=== PATIENT | female | born 1990 | race African-American/Black ===

== ENCOUNTER 2017-03-03 20:42 | Emergency (ER) | payer SELFPAY ==
[2017-03-03] MEDS ORDERED: Acetaminophen 500 MG TAB ONE ×2 (21:29→21:31)
[2017-03-03] MEDS ORDERED: Ondansetron ODT 4 MG TAB ONE (22:57)
[2017-03-03] MEDS ORDERED: Dexamethasone 4 mg/ml Vial ONE (22:57)
== END 2017-03-03 23:24 | disposition home or self-care (01) ==
LOC: ERS 20:42
DX: J02.9 Acute pharyngitis, unspecified (principal); R11.0 Nausea; F17.210 Nicotine dependence, cigarettes, uncomplicated
CPT/HCPCS: 87081; 87430; 99283; J1100; Q0162

== ENCOUNTER 2017-03-09 13:34 | Emergency (ER) | payer SELFPAY ==
[2017-03-09] MEDS ORDERED: Dexamethasone 10 MG/ML VIAL ONE (14:51)
== END 2017-03-09 16:00 | disposition home or self-care (01) ==
LOC: SCSER 13:34
DX: J02.9 Acute pharyngitis, unspecified (principal)
CPT/HCPCS: 81025; 86308; 87081; 87430; 96360; J1100

== ENCOUNTER 2019-01-31 18:14 | Emergency (ER) | payer SELFPAY | END 2019-01-31 19:30 | disposition home or self-care (01) | LOC: ERS 18:14 | DX: R05 Cough (principal); F17.210 Nicotine dependence, cigarettes, uncomplicated | CPT/HCPCS: 99283 ==

== ENCOUNTER 2019-03-07 11:42 | Emergency (ER) | payer SELFPAY | END 2019-03-07 13:00 | disposition home or self-care (01) | LOC: ERS 11:42 | DX: L25.3 Unspecified contact dermatitis due to other chemical products (principal); F17.210 Nicotine dependence, cigarettes, uncomplicated | CPT/HCPCS: 99283 ==

== ENCOUNTER 2020-04-01 17:18 | Emergency (ER) | payer SELFPAY | END 2020-04-01 19:07 | disposition home or self-care (01) | LOC: ERS 17:18 | DX: J02.9 Acute pharyngitis, unspecified (principal); F17.210 Nicotine dependence, cigarettes, uncomplicated | CPT/HCPCS: 87081; 87430; 99283 ==

== ENCOUNTER 2020-04-19 16:42 | Emergency (ER) | payer SELFPAY ==
[2020-04-19] MEDS ORDERED: Acetaminophen 500 MG TAB ONE (17:00)
[2020-04-19] MEDS ORDERED: Bicillin LA 1.2 MILLION UNITS/2 ML SYRINGE ONE (17:00)
[2020-04-19] MEDS ORDERED: Dexamethasone 4 MG TAB ONE (17:00)
[2020-04-19] MEDS ORDERED: Dexamethasone 10 MG/ML VIAL ONE (17:00)
[2020-04-19] MEDS ORDERED: Ketorolac Tromethamine 30 MG/ML VIAL ONE (17:00)
== END 2020-04-19 17:29 | disposition home or self-care (01) ==
LOC: ERS 16:42
DX: J02.0 Streptococcal pharyngitis (principal); F17.210 Nicotine dependence, cigarettes, uncomplicated
CPT/HCPCS: 96372; 99282; J0561; J1100; J1885; J8540

== ENCOUNTER 2020-06-10 07:11 | Emergency (ER) | payer SELFPAY ==
[2020-06-10] MEDS ORDERED: cefTRIAXone\\ROCEPHIN 500 MG VIAL ONE (07:32)
[2020-06-10 07:53] LABS: Bilirubin Negative (Negative); Blood, Urine Negative (Negative); Clarity Clear (Clear); Glucose, Urine (Dipstick) Normal (Negative); Ketone, Urine Negative (Negative); Leukocyte Negative Leu/uL (Negative); Nitrite Negative (Negative); Protein, Urine (Dipstick) Negative (Neg-Trace); Specific Gravity, Urine 1.006 (1.002-1.036); Urobilinogen Normal mg/dL (Less than 2)
[2020-06-10 08:11] LABS: Pregnancy Test - Urine (BHCG) Negative (Negative); Pregu Control Background? CLEAR/WHITE (CLR/WHITE); Pregu Control Bar Appear? YES (CONTROL BAR); Specific Gravity 1.006 (1.002-1.036)
[2020-06-10 22:08] LABS: Chlamydia by PCR Not Detected (NotDetected); GC by PCR Not Detected (NotDetected)
== END 2020-06-10 08:55 | disposition home or self-care (01) ==
LOC: ERS 07:11
DX: N76.0 Acute vaginitis (principal); Z20.2 Contact with and (suspected) exposure to infections with a predominantly sexual mode of transmission; F17.210 Nicotine dependence, cigarettes, uncomplicated
CPT/HCPCS: 81003; 81025; 87480; 87491; 87510; 87591; 87660; 96372; 99283; J0696

== ENCOUNTER 2020-11-03 00:55 | Emergency (ER) | payer SELFPAY ==
[2020-11-03] MEDS ORDERED: HYDROcodone/Acetaminophen 10/325 mg Tablet ONE (05:58)
== END 2020-11-03 02:25 | disposition home or self-care (01) ==
LOC: ERS 00:55
DX: S83.92XA Sprain of unspecified site of left knee, initial encounter (principal); F17.210 Nicotine dependence, cigarettes, uncomplicated; X50.1XXA Overexertion from prolonged static or awkward postures, initial encounter

== ENCOUNTER 2021-02-21 17:17 | Emergency (ER) | payer SELFPAY | END 2021-02-21 17:41 | disposition home or self-care (01) | LOC: ERS 17:17 | DX: J02.9 Acute pharyngitis, unspecified (principal); F17.210 Nicotine dependence, cigarettes, uncomplicated | CPT/HCPCS: 99282 ==

== ENCOUNTER 2021-06-25 00:16 | Emergency (ER) | payer OTHER, SELFPAY ==
[2021-06-25] MEDS ORDERED: Bicillin LA 1.2 MILLION UNITS/2 ML SYRINGE ONE (02:18)
[2021-06-25] MEDS ORDERED: Dexamethasone 10 MG/ML VIAL ONE (02:18)
== END 2021-06-25 02:47 | disposition home or self-care (01) ==
LOC: ERS 00:16
DX: J02.9 Acute pharyngitis, unspecified (principal); F17.210 Nicotine dependence, cigarettes, uncomplicated
CPT/HCPCS: 96372; 99282; J0561; J1100